=== PATIENT | female | born 1975 | race Hispanic/Latino ===

== ENCOUNTER 2025-02-21 07:23 | Emergency (ER) | payer BC, SELFPAY ==
[2025-02-21 07:32] VITALS: BP 144/97
[2025-02-21 08:04] LABS: Urine Character Clear (Clear)
[2025-02-21 08:08] LABS: Hematocrit 39.9 % (37.0-47.0); Hemoglobin 13.2 g/dL (12.0-16.0); Mean Corp Hgb Conc. 33.1 g/dL (33.0-37.0); Mean Corpuscular Volume 89.3 fL (81.0-99.0); Nucleated Red Blood Cells % 0 %; Platelet Count 386 10^3/uL (130-400); Red Cell Dist. Width 14.4 % (11.5-14.5)
[2025-02-21 08:11] LABS: Urine Red Blood Cell 0-2 /HPF (0-2); Urine Squamous Cell 26-30 /LPF (Few); Urine White Cell 30-40 /HPF (0-5)
[2025-02-21 08:14] LABS: HCG, Serum Qualitative Screen Negative
[2025-02-21 08:21] LABS: ALT (SGPT) 18 U/L (0-35); AST (SGOT) 29 U/L (14-36); Albumin 4.5 g/dl (3.5-5.0); Alkaline Phosphatase 78 U/L (38-126); Blood Urea Nitrogen 18 mg/dl (7-17); Calcium 9.6 mg/dl (8.4-10.2); Carbon Dioxide 28 mmol/L (22-30); Chloride 102 mmol/L (98-107); Glucose 105 mg/dl (70-99); Lipase 85 U/L (23-300); Potassium 3.6 mmol/L (3.5-5.1); Sodium 137 mmol/L (135-145); Total Protein 7.6 g/dl (6.3-8.2); eGFR > 60.00
[2025-02-21 09:47] VITALS: BMI 38.1
--- NOTE | 2025-02-21 10:03 | ED.GENMED ---
History of Present Illness
<Jessica Ambrose DO, Resident - Last Filed: 02/24/25 06:02>
General
Chief Complaint: Urinary Symptoms
Source: patient
Exam Limitations: none
Time Seen by Provider: 02/21/25 09:45
Nursing documentation reviewed up to this point in time: agreed with
History of Present Illness
History of Present Illness:
Patient is a 49-year-old female past medical history of attention presenting with urinary symptoms. Patient started with urinary symptoms yesterday including N/V, lower abdominal pain, lower back pain, fever and dark urine. Patient has been taking
Tylenol since yesterday last dose at 6 AM.
Review of Systems
<Jessica Ambrose DO, Resident - Last Filed: 02/24/25 06:02>
Review of Systems
Allergies reviewed?: Yes
All Other Systems: ROS reviewed and negative except as documented in HPI and ROS
Constitutional: Reports fever
EENT: Reports no symptoms
Respiratory: Reports no symptoms
Cardiac: Reports no symptoms
ABD/GI: Reports abdominal pain, nausea and vomiting
: Reports dark urine
Musculoskeletal: Reports back pain
Skin: Reports no symptoms
Neurological: Reports headache (history of migraines)
Endocrine: Reports no symptoms
Hematologic/Lymphatic: Reports no symptoms
Psychiatric: Reports no symptoms
Phy Exam
<Jessica Ambrose DO, Resident - Last Filed: 02/24/25 06:02>
General Physical Exam
General Presentation: well appearing, no apparent distress and moderate distress
General age: appears stated age
General Skin: warm and dry
General Habitus: normal
Cardiovascular Exam
Cardiovascular Exam: regular rate/rhythm
Heart Sounds: normal
Pulmonary Exam
Pulmonary Exam: lungs clear and no respiratory distress
Gastrointestinal Exam
Gastrointestinal Exam: normal bowel sounds and tender (Generalized tenderness in the lower abdomen)
Neurological Exam
Neurological Exam: alert and oriented x3
Skin Exam
Skin Exam: normal color and warm/dry
Psychiatric Exam
Psychiatric Exam: normal mood/affect
Sepsis
<Jessica Ambrose DO, Resident - Last Filed: 02/24/25 06:02>
Sepsis Screening
Sepsis Assessment: Sepsis Ruled Out
Sepsis Screen
Sepsis Screen: Sepsis Ruled Out
Date: 02/24/25
Time: 06:01
Course
<Jessica Ambrose DO, Resident - Last Filed: 02/24/25 06:02>
Orders/Labs/Results
Orders:
Orders
02/21/25 07:36
IV Insert/Care/Rem.- Treatment PRN
Test Result ONCE
02/21/25 07:42
Complete Blood Count/With Diff Urgent
Comprehensive Metabolic Panel Urgent
HCG, Serum Qualitative Screen Urgent
Comment: Notify provider if positive test present
Lipase Urgent
Urinalysis Reflex To Culture Urgent
Date Specimen was Collected: 02/21/25
Time Specimen was Collected: 07:36
Urine Microscopic Reflex Cult Urgent
Urine Culture Urgent
ASTRID Source: U
Specimen Description:
Date Specimen was Collected: 02/21/25
Time Specimen was Collected: 07:36
02/21/25 10:18
0.9% Sodium Chloride 500 ml [Nss] 500 ml IV BOLUS
US Abdomen Complete/Upper Urgent
Reason For Exam: RUQ pain / right flank pain
02/21/25 10:23
Ketorolac [Toradol] 15 mg IV NOW STA
02/21/25 11:21
Hydrochlorothiazide [Oretic] 25 mg PO NOW STA
Losartan [Cozaar] 50 mg PO NOW STA
02/21/25 12:54
CT Abd/pelvis W Iv Cont Urgent
Comment:
Reason For Exam: lower abdominal pain
02/21/25 15:26
Cephalexin Monohydrate [Keflex] 500 mg PO NOW STA
Abnormal Lab Results
02/21/25
07:42
Absolute Monos (auto) 0.8 H 10^3/uL
(0.1-0.6)
BUN 18 H mg/dl
(7-17)
Glucose 105 H mg/dl
(70-99)
Ur Occult Blood Reflex 3+ A
(Negative)
Leukocyte Esterase Rfl 3+ A
(Negative)
Urine WBC (Reflex) 30-40 A /HPF
(0-5)
Urine Bacteria (Reflex) Moderate A
(Negative)
Urine Albumin (Reflex) 2+ A
(Neg - Trace)
02/21/25 07:42
02/21/25 07:42
Vital Signs
Initial and Last Documented VS:
Initial Vital Signs
Temp Pulse Resp BP Pulse Ox
98.3 F 77 22 144/97 95
02/21/25 07:32 02/21/25 07:32 02/21/25 07:32 02/21/25 07:32 02/21/25 07:32
Last Documented Vital Signs
Temp Pulse Resp BP Pulse Ox
98.3 F 76 18 132/85 97
02/21/25 07:32 02/21/25 15:45 02/21/25 15:45 02/21/25 15:45 02/21/25 15:45
<Nicole Red DO - Last Filed: 02/21/25 13:03>
Orders/Labs/Results
Orders:
Orders
02/21/25 07:36
IV Insert/Care/Rem.- Treatment PRN
Test Result ONCE
02/21/25 07:42
Complete Blood Count/With Diff Urgent
Comprehensive Metabolic Panel Urgent
HCG, Serum Qualitative Screen Urgent
Comment: Notify provider if positive test present
Lipase Urgent
Urinalysis Reflex To Culture Urgent
Date Specimen was Collected: 02/21/25
Time Specimen was Collected: 07:36
Urine Microscopic Reflex Cult Urgent
Urine Culture Urgent
ASTRID Source: U
Specimen Description:
Date Specimen was Collected: 02/21/25
Time Specimen was Collected: 07:36
02/21/25 10:18
0.9% Sodium Chloride 500 ml [Nss] 500 ml IV BOLUS
US Abdomen Complete/Upper Urgent
Reason For Exam: RUQ pain / right flank pain
02/21/25 10:23
Ketorolac [Toradol] 15 mg IV NOW STA
02/21/25 11:21
Hydrochlorothiazide [Oretic] 25 mg PO NOW STA
Losartan [Cozaar] 50 mg PO NOW STA
02/21/25 12:54
CT Abd/pelvis W Iv Cont Urgent
Comment:
Reason For Exam: lower abdominal pain
02/21/25 15:26
Cephalexin Monohydrate [Keflex] 500 mg PO NOW STA
Abnormal Lab Results
02/21/25
07:42
Absolute Monos (auto) 0.8 H 10^3/uL
(0.1-0.6)
BUN 18 H mg/dl
(7-17)
Glucose 105 H mg/dl
(70-99)
Ur Occult Blood Reflex 3+ A
(Negative)
Leukocyte Esterase Rfl 3+ A
(Negative)
Urine WBC (Reflex) 30-40 A /HPF
(0-5)
Urine Bacteria (Reflex) Moderate A
(Negative)
Urine Albumin (Reflex) 2+ A
(Neg - Trace)
02/21/25 07:42
02/21/25 07:42
Vital Signs
Initial and Last Documented VS:
Initial Vital Signs
Temp Pulse Resp BP Pulse Ox
98.3 F 77 22 144/97 95
02/21/25 07:32 02/21/25 07:32 02/21/25 07:32 02/21/25 07:32 02/21/25 07:32
Last Documented Vital Signs
Temp Pulse Resp BP Pulse Ox
98.3 F 76 18 132/85 97
02/21/25 07:32 02/21/25 15:45 02/21/25 15:45 02/21/25 15:45 02/21/25 15:45
<Jessica Ambrose DO, Resident - Last Filed: 02/24/25 06:02>
MDM/Problems Addressed
Differential Diagnosis Includes:
UTI, kidney stone, pyelonephritis
MDM/Problems Addressed:
Urine specimen positive for occult blood, leukocyte Estrace 3+, urine white blood cells 30-40, and urine bacteria moderate.
Patient has been told before that she has cholelithiasis. Will get right upper quadrant abdominal ultrasound.
15:20 ultrasound showed known cholelithiasis without cholecystitis. CT abdomen pelvis showed cholelithiasis without cholecystitis. No obstructive uropathy. No urinary bladder calculus. Bladder unremarkable. Enlarged uterus secondary to 8 cm
fibroid. Left ovarian 4 cm simple cyst. No acute inflammatory process within the abdomen or pelvis. The appendix is normal. Patient will be discharged with Keflex antibiotics for 7 to 10 days.
<Jessica Ambrose DO, Resident - Last Filed: 02/24/25 06:02>
*Radiology
Radiology exam reviewed: radiology read reviewed
*Pulse Oximetry
SaO2: 95
Patient hypoxic: no
*Critical Care Note
Total Time (30-74mins, 75-104mins- exclusive of procedures): Not Applicable
ED Attending Note
<Jessica Ambrose DO, Resident - Last Filed: 02/24/25 06:02>
-
Portions of this chart may have been created with voice recognition software.� Occasional wrong word or��sound alike� substitutions may have occurred due to the inherent limitations of voice recognition software.
<Nicole Red DO - Last Filed: 02/21/25 13:03>
ED Attending Note
Patient seen and examined by attending physician: Yes
I performed the substantive portion of visit, reviewed & personally made and approve the management plan that is documented in note by myself or TREVOR.: Yes
I performed a history and physical exam of patient and discussed management with resident, I reviewed resident's note and agree with documented findings and plan of care.: Yes
ED Attending Note:
49-year-old female with history of hypertension presenting to the emergency department for fever, low back pain, lower abdominal pain. Patient reports symptoms started yesterday. Does note history of UTI and was concerned that maybe she was
developing a urinary infection. 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 Denies dysuria, increased frequency, hematuria. Denies any significant abdominal surgeries. Does note history of
gallstones. Pain is crampy in quality. Denies vomiting chest pain or difficulty breathing. Vital signs are normal.
On exam patient is resting comfortably, no acute distress, nontoxic. Mild tenderness to the right flank. No midline tenderness. Unremarkable cardiac and pulmonary exam. On abdominal exam, focal tenderness to the right upper quadrant, mild
suprapubic tenderness. Differential considerations include cystitis versus pyelonephritis versus cholelithiasis versus cholecystitis. Preliminary labs are unremarkable. Urinalysis does show some infection with leukocytes and WBCs. Will monitor
his potassium focal tenderness to the lateral lower quadrant, plan for right upper quadrant ultrasound
13:00 -ultrasound without significant pathology, cholelithiasis without cholecystitis. Patient however still having pain, more right-sided. For this reason we will proceed with CT abdomen and pelvis
Discharge Plan
Departure
Patient Disposition: Home (Routine Discharge)
Date of Disposition: 02/21/25
Time of Disposition: 15:33
Patient with high blood pressure during this ER visit?: Yes
Discharge Problem:
UTI (urinary tract infection)
Instructions: Urinary Tract Infection, Adult (DC), BLOOD PRESSURE
Prescriptions:
New
cephalexin 500 mg capsule
500 mg PO BID Qty: 18 0RF
Referrals:
Marci Rutledge MD [Active, Gynecology]
Rohit Mariano MD, Resident [Family Provider, General]
Activity Restrictions/Additional Instructions:
Please take Keflex 500 mg twice daily for 9 days. You received 1 dose of Keflex here in the ED. Please return with any worsening symptoms.
Gynecology referral provided
Interventions
Interventions:
*Risk Screen - Suicide Last Done: 02/21/25 07:32
*General Assessment Last Done: 02/21/25 07:32
*Neglect/Abuse Screening Last Done: 02/21/25 07:32
*ED- Fall Risk Assessment Last Done: 02/21/25 10:41
*ED COVID-19 Vaccine History Last Done: 02/21/25 10:41
*Nursing Disposition Last Done: 02/21/25 15:52
ED-Female Genitourinary Assessment Last Done: 02/21/25 09:52
Discharge Date and Time
Discharge Date/Time: 02/21/25 15:53
Print Language: [place]
[2025-02-21 11:00] VITALS: BP 144/93
[2025-02-21] MEDS: NSS 500 IV (11:02)
[2025-02-21] MEDS: TORADOL 15 MG IV (11:02)
--- NOTE | 2025-02-21 11:06 | EDRN ---
small hematoma at site
[2025-02-21] MEDS: COZAAR 50 MG PO (11:27)
[2025-02-21] MEDS: ORETIC 25 MG PO (11:27)
[2025-02-21 12:00] VITALS: BP 133/88
[2025-02-21 13:00] VITALS: BP 136/102
[2025-02-21 14:05] VITALS: BP 144/87
[2025-02-21 15:45] VITALS: BP 132/85
[2025-02-21] MEDS: KEFLEX 500 MG PO (15:49)
== END 2025-02-21 15:53 | disposition home or self-care (01) ==
LOC: EMR 07:23
PROVIDERS: EMERGENCY PHYSICIAN Student in an Organized Health Care Education/Training Program
DX: N39.0 Urinary tract infection, site not specified (principal); I10 Essential (primary) hypertension; K80.20 Calculus of gallbladder without cholecystitis without obstruction; N85.2 Hypertrophy of uterus; G43.909 Migraine, unspecified, not intractable, without status migrainosus; Z87.440 Personal history of urinary (tract) infections
CPT/HCPCS: 99284; 96374; 96361 ×2; 74177; 76700; 80053; 81003; 81015; 83690; 84703; 85025; 87086; Q9967

== ENCOUNTER → 2025-03-16 11:10 | Outpatient (REF) | payer BC, SELFPAY ==
[2025-03-24 08:18] LABS: HPV, High Risk Not Detected; HPV, High Risk Source Cervical
== END ==
LOC: CPAP 11:10
PROVIDERS: ATTENDING PHYSICIAN Obstetrics & Gynecology
DX: Z11.51 Encounter for screening for human papillomavirus (HPV) (principal)
CPT/HCPCS: 87624

== ENCOUNTER 2025-03-21 07:16 | Emergency (ER) | payer BC, SELFPAY ==
[2025-03-21 07:27] VITALS: BP 140/105
--- NOTE | 2025-03-21 08:24 | ED.MUSCINJ ---
HPI-Injury
General
Chief Complaint: Musculo-Skeletal Complaint
Source: patient
Exam Limitations: none
Time Seen by Provider: 03/21/25 08:09
History of Present Illness-Injury
Initial Injury comments:
49-year-old female with history of hypertension presents with swelling and pain to the left side of the neck near the clavicle that she noticed throughout her shift last evening. She works overnight here as a nurse. No known injury. She denies
fever cough or shortness of breath. The pain is not pleuritic. Does not seem to be made worse with motion but is more tender to the touch. No other complaints
Phy Exam
Physical Exam
Physical Exam:
General: Well-appearing female no acute respiratory distress
HEENT: Normocephalic atraumatic neck is supple there is some soft tissue swelling and tenderness just superior to the medial left clavicle. No overlying skin changes posterior pharynx patent
Heart: Regular rate and rhythm
Lungs: Clear no wheeze
Injury Course
Orders/Labs/Results
Orders:
Orders
03/21/25 08:23
CT Neck With Iv Contrast Urgent
Comment:
Reason For Exam: swelling left neck
03/21/25 08:29
Complete Blood Count/With Diff Urgent
Comprehensive Metabolic Panel Urgent
Abnormal Lab Results
03/21/25
08:29
MCHC 32.6 L g/dL
(33.0-37.0)
Absolute Monos (auto) 0.7 H 10^3/uL
(0.1-0.6)
Glucose 107 H mg/dl
(70-99)
03/21/25 08:29
03/21/25 08:29
MDM/Problems Addressed
Differential Diagnosis Includes:
Atraumatic swelling base of anterior left neck consider muscular strain versus lymphadenopathy versus abscess
Will order CT with neck with IV contrast labs pending
*Pulse Oximetry
SaO2: 97
Oxygen Mode of Delivery: Room air
Patient hypoxic: no
*Critical Care Note
Total Time (30-74mins, 75-104mins- exclusive of procedures): Not Applicable
Update Note
Update Note:
CT demonstrates suggestion of 2.2 cm nodule over the left lower lobe of the thyroid gland which may explain patient's swelling. No other acute finding noted. Recommended follow-up with family doctor for dedicated ultrasound. Stable for discharge
ED Attending Note
-
Portions of this chart may have been created with voice recognition software.� Occasional wrong word or��sound alike� substitutions may have occurred due to the inherent limitations of voice recognition software.
Discharge Plan
Departure
Patient Disposition: Home (Routine Discharge)
Date of Disposition: 03/21/25
Time of Disposition: 11:13
Patient with high blood pressure during this ER visit?: No
Discharge Problem:
Thyroid nodule
Prescriptions:
No Action
cephalexin 500 mg capsule
500 mg PO BID Qty: 18 0RF
Referrals:
Rohit Mariano MD, Resident [Family Provider, General]
Activity Restrictions/Additional Instructions:
Please return here for worsening symptoms otherwise follow-up with your family doctor for more dedicated imaging of your thyroid gland such as an ultrasound
Interventions
Interventions:
*Risk Screen - Suicide Last Done: 03/21/25 07:27
*General Assessment Last Done: 03/21/25 07:27
*Neglect/Abuse Screening Last Done: 03/21/25 09:00
*ED COVID-19 Vaccine History Last Done: 03/21/25 09:00
ED-Musculoskeletal Assessment Last Done: 03/21/25 09:00
Discharge Date and Time
Print Language: ICELANDIC
[2025-03-21 08:52] LABS: Hematocrit 40.8 % (37.0-47.0); Hemoglobin 13.3 g/dL (12.0-16.0); Mean Corp Hgb Conc. 32.6 g/dL (33.0-37.0); Mean Corpuscular Volume 87.6 fL (81.0-99.0); Nucleated Red Blood Cells % 0 %; Platelet Count 377 10^3/uL (130-400); Red Cell Dist. Width 14.3 % (11.5-14.5)
[2025-03-21 09:14] LABS: ALT (SGPT) 21 U/L (0-35); AST (SGOT) 23 U/L (14-36); Albumin 4.5 g/dl (3.5-5.0); Alkaline Phosphatase 79 U/L (38-126); Blood Urea Nitrogen 16 mg/dl (7-17); Calcium 9.8 mg/dl (8.4-10.2); Carbon Dioxide 27 mmol/L (22-30); Chloride 103 mmol/L (98-107); Glucose 107 mg/dl (70-99); Potassium 3.5 mmol/L (3.5-5.1); Sodium 136 mmol/L (135-145); Total Protein 7.2 g/dl (6.3-8.2); eGFR > 60.00
[2025-03-21 10:50] VITALS: BP 139/99
[2025-03-21 11:38] VITALS: BP 134/92
== END 2025-03-21 12:01 | disposition home or self-care (01) ==
LOC: EMR 07:16
PROVIDERS: Physician Assistant; EMERGENCY PHYSICIAN Emergency Medicine
DX: E04.1 Nontoxic single thyroid nodule (principal); T14.90XA Injury, unspecified, initial encounter
CPT/HCPCS: 99284; 70491; 80053; 85025; Q9967

== ENCOUNTER → 2025-03-23 09:35 | Outpatient (REF) | payer BC, SELFPAY ==
[2025-03-23 18:28] LABS: Hematocrit 44.5 % (37.0-47.0); Hemoglobin 14.0 g/dL (12.0-16.0); Mean Corp Hgb Conc. 31.5 g/dL (33.0-37.0); Mean Corpuscular Volume 92.5 fL (81.0-99.0); Nucleated Red Blood Cells % 0 %; Platelet Count 406 10^3/uL (130-400); Red Cell Dist. Width 14.7 % (11.5-14.5)
[2025-03-23 18:40] LABS: ALT (SGPT) 20 U/L (0-35); AST (SGOT) 21 U/L (14-36); Albumin 4.5 g/dl (3.5-5.0); Alkaline Phosphatase 72 U/L (38-126); Blood Urea Nitrogen 18 mg/dl (7-17); Calcium 10.0 mg/dl (8.4-10.2); Carbon Dioxide 31 mmol/L (22-30); Chloride 102 mmol/L (98-107); Glucose 115 mg/dl (70-99); Potassium 3.8 mmol/L (3.5-5.1); Sodium 140 mmol/L (135-145); Total Protein 7.5 g/dl (6.3-8.2); eGFR > 60.00
[2025-03-23 19:58] LABS: HDL Cholesterol 46 mg/dl; LDL Cholesterol, Calculated 175 mg/dl; Very Low Density Lipoprotein 54 mg/dl (0-30)
[2025-03-24 09:28] LABS: Glycohemoglobin (HgbA1c) 5.7 % (4.0-5.6)
== END ==
LOC: CLAB 09:35
DX: I10 Essential (primary) hypertension (principal); E66.01 Morbid (severe) obesity due to excess calories
CPT/HCPCS: 36415; 80053; 80061; 83036; 84443; 85025

== ENCOUNTER → 2025-03-29 14:38 | Outpatient (REF) | payer BC, SELFPAY | LOC: HWRAD 14:38 | DX: E04.1 Nontoxic single thyroid nodule (principal) | CPT/HCPCS: 76536 ==

== ENCOUNTER → 2025-04-26 07:14 | Outpatient (REF) | payer BC, SELFPAY ==
[2025-04-26 08:05] VITALS: BP 156/92; BP_SYST 73
== END ==
LOC: RADI 07:14
DX: E04.1 Nontoxic single thyroid nodule (principal)
CPT/HCPCS: 10005; 88173

== ENCOUNTER 2025-06-27 06:34 | Day surgery (SDC) | payer BC, SELFPAY ==
[2025-06-14 09:08] LABS: Hematocrit 43.2 % (37.0-47.0); Hemoglobin 14.2 g/dL (12.0-16.0); Mean Corp Hgb Conc. 32.9 g/dL (33.0-37.0); Mean Corpuscular Volume 88.9 fL (81.0-99.0); Platelet Count 432 10^3/uL (130-400); Red Cell Dist. Width 14.2 % (11.5-14.5)
[2025-06-14 09:18] LABS: INR 1.03; PT 13.3 Sec (11.4-14.6)
[2025-06-14 09:19] LABS: APTT 26.3 Sec (23.4-35.0)
[2025-06-14 09:59] LABS: ALT (SGPT) 22 U/L (0-35); AST (SGOT) 24 U/L (14-36); Albumin 4.6 g/dl (3.5-5.0); Alkaline Phosphatase 72 U/L (38-126); Blood Urea Nitrogen 18 mg/dl (7-17); Calcium 9.9 mg/dl (8.4-10.2); Carbon Dioxide 30 mmol/L (22-30); Chloride 103 mmol/L (98-107); Glucose 90 mg/dl (70-99); Potassium 4.1 mmol/L (3.5-5.1); Sodium 140 mmol/L (135-145); Total Protein 7.8 g/dl (6.3-8.2); eGFR > 60.00
[2025-06-14 13:50] VITALS: BMI 36.4
--- NOTE | 2025-06-20 08:35 | PTCARENOTE ---
Abn ECG, Dr. medina notified, no additional interventions requested.
[2025-06-27] VITALS (11 sets, daily range): BP systolic 118–148; BP diastolic 78–90; BMI 36.4
[2025-06-27] MEDS: NEURONTIN 300 MG PO (11:47)
[2025-06-27] MEDS: TYLENOL 1000 MG PO (11:48)
[2025-06-27] MEDS: HEPARIN 5000 UNITS SC (11:49)
[2025-06-27] MEDS: NORMOSOL-R/PLASMALYTE-A 1000 IV (12:04)
[2025-06-27] MEDS: DILAUDID 0.25 MG IV (14:47)
--- NOTE | 2025-06-27 18:26 | OR.RPT ---
Operative Report
Operative Report
DATE OF OPERATION: June 27, 2025
PREOPERATIVE DIAGNOSIS: Left Thyroid Nodule - E041
POSTOPERATIVE DIAGNOSIS: Same
SURGEON: Andres Conti M.D.
OPERATION: Left Total Thyroidectomy and Limited Neck Dissection � 81280
Autotransplant of the left inferior parathyroid gland in the left SCM - [id number]
ANESTHESIA: GET
ESTIMATED BLOOD LOSS: 5 cc
DRAINS: None
SPECIMEN: left total thyroid lobe and isthmus and left level paratracheal tissue
FINDINGS: Thyroid nodule
COMPLICATIONS: None
PROCEDURE:
The patient was taken to the operating room and placed in the usual supine position. After adequate general endotracheal anesthesia was established, the patient�s neck was extended, prepped, and draped in the typical sterile fashion. A 5 cm
transcervical incision was made two fingerbreadths above the sternal notch. The skin incision was made with the #15 blade, which was taken through the skin into the subcutaneous tissue. The underlying platysma muscle was divided, and subplatysmal
flaps were created superiorly to the thyroid cartilage and inferiorly to the sternal notch. Strap muscles were identified and at the midline.
Attention was turned to the patient�s left thyroid lobe. The left thyroid lobe was mobilized medially. During this process, the left middle thyroid vein and inferior thyroid artery were dissected and ligated with Ligasure. Next, the left superior
pole was taken down by dissecting and transecting the superior pole vessels with a Ligasure. The left thyroid lobe was mobilized medially. During this process, the left recurrent laryngeal nerve was identified and preserved throughout its entire
course. The left superior and inferior parathyroid glands were identified and preserved. The left thyroid lobe with isthmus was resected from the trachea and sent to the pathology department.
At this time, the left neck dissection was performed. The tissue between the left carotid artery to the trachea into the anterior mediastinum was carefully dissected. The previously identified recurrent laryngeal nerve and parathyroid glands were
preserved. The tissue was removed and sent to the pathology department.
The left inferior parathyroid gland appeared ischemic; therefore, a decision was made to autotransplant it. The gland was removed, minced with a #10 blade, and then autotransplanted into the left SCM muscle.
After achieving adequate hemostasis, the strap muscle was approximated with #3-0 Vicryl in a running fashion, and the platysma muscles were reapproximated with #3-0 Vicryl in an interrupted manner. The skin was then closed with #4-0 Monocryl in a
running subcuticular technique. Steri-strips and sterile dressings were applied. The patient tolerated the procedure well. The final instrument, needle, and sponge counts were correct.
== END 2025-06-27 16:05 | disposition home or self-care (01) ==
LOC: SDS 06:34
PROVIDERS: ATTENDING PHYSICIAN Surgery; FAMILY PHYSICIAN Family Medicine
DX: D34 Benign neoplasm of thyroid gland (principal); E04.1 Nontoxic single thyroid nodule
CPT/HCPCS: 60220; 60512; 80053; 85027; 85610; 85730; 88307; 93005